=== PATIENT | female | born 1960 | race Hispanic/Latino ===

== ENCOUNTER 2021-03-06 00:33 | Emergency (ER) | payer SELFPAY ==
[~2021-03-06] VITALS: Ht 154.9 cm; Wt 58.1 kg
[2021-03-06] MEDS ORDERED: LIDOCAINE 1% W/EPINEPHRINE 20 ML VIAL ONE (01:02)
[2021-03-06] MEDS ORDERED: BACITRACIN ZINC 0.9GM TP ONE ×2 (01:04→02:00)
[2021-03-06] MEDS ORDERED: TETANUS/DIPHTHERIA TOX ADULT 0.5 ML SYR ONE (01:04)
[2021-03-06] MEDS ORDERED: CEPHALEXIN500 MG PO (01:33)
[2021-03-06 01:43] VITALS: BP 150/74
[2021-03-06] MEDS ORDERED: LIDOCAINE 1% W/EPINEPHRINE 20 ML VIAL INJ ONE (02:00)
== END 2021-03-06 01:43 | disposition home or self-care (01) ==
LOC: FSED 00:57
DX: S01.511A Laceration without foreign body of lip, initial encounter (principal); G89.11 Acute pain due to trauma; Z23 Encounter for immunization
CPT/HCPCS: 90714; 99282